=== PATIENT | male | born 1985 | race Two or more races ===

== ENCOUNTER 2019-03-03 06:57 | Emergency (ER) | payer OTHER ==
[~2019-03-03] VITALS: Ht 170.2 cm; Wt 91.0 kg
[2019-03-03] MEDS ORDERED: IBUPROFEN 600MG TABLET PO ONE (07:45)
[2019-03-03 09:36] VITALS: BP 130/77
== END 2019-03-03 09:37 | disposition home or self-care (01) ==
LOC: ER 06:57
DX: M25.512 Pain in left shoulder (principal); F12.10 Cannabis abuse, uncomplicated; F17.200 Nicotine dependence, unspecified, uncomplicated
CPT/HCPCS: 73030; 99283; A4565